=== PATIENT | male | born 1965 | race Caucasian/White ===

== ENCOUNTER 2021-06-13 11:09 | Outpatient (CLI) | payer BC ==
[~2021-06-13] VITALS: Ht 180 cm; Wt 128.0 kg
[2021-06-13 11:05] VITALS: BP 152/76
[2021-06-13] MEDS ORDERED: diphenhydrAMINE 50 MG/ML INJ (BENADRYL) IV PRN (11:15)
[2021-06-13] MEDS ORDERED: EPINEPHrine INJECTION 1 MG/ML AMP IM PRN (11:15)
[2021-06-13] MEDS ORDERED: CASIRIVIMAB/IMDEVIMAB 1,200 MG in NS (IVPB) 250 ML IV ONE (11:15)
[2021-06-13 12:26] VITALS: BP 126/68
== END 2021-06-13 13:05 | disposition home or self-care (01) ==
LOC: INFUSION 11:09
PROVIDERS: ATTEND Nurse Practitioner Family
DX: Z23 Encounter for immunization (principal); U07.1 COVID-19